=== PATIENT | female | born 1955 | race Caucasian/White ===

== ENCOUNTER → 2020-08-10 | Outpatient (CLI) | payer BC, OTHER ==
[~2020-08-10] MED LIST: GLUCOPHAGE1000 MG PO; MECLIZINE HCL25 M1 PO; PRINIVIL; ZOCOR; ZOFRAN4 MG PO
== END ==
LOC: SJCVCIMAG 08:14
PROVIDERS: ATTEND Internal Medicine
DX: I08.3 Combined rheumatic disorders of mitral, aortic and tricuspid valves (principal); I10 Essential (primary) hypertension